=== PATIENT | male | born 2000 | race Caucasian/White ===

== ENCOUNTER 2020-09-12 07:06 | Day surgery (SDC) | payer BC ==
[2020-09-12] MEDS ORDERED: Sodium Chloride 0.9% 10 ML Syringe FLUSH PRN (07:46)
[2020-09-12] MEDS ORDERED: Lactated Ringers 1,000 ML IV SCH (08:00)
[2020-09-12] MEDS ORDERED: Propofol 200 MG/20 ML SDV ONE (08:45)
[2020-09-12] MEDS ORDERED: Midazolam 1 MG/ML 2 ML SDV ONE (08:45)
[2020-09-12] MEDS ORDERED: Glycopyrrolate 0.2 MG/ML SDV ONE (08:45)
[2020-09-12] MEDS ORDERED: Lidocaine 2% 5 ML SDV ONE (08:45)
[2020-09-12] MEDS ORDERED: Ketamine 200 MG/20 ML MDV ONE (08:45)
--- NOTE | 2020-09-12 09:36 | PCM.OPNOTE ---
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 All aspects of this procedure have been discussed with the patient. All possible complications also, including possibility of perforation, infection, pain, bleeding, numbness of the throat, swallowing difficulty and unknown com plications. In the event of perforation the patient may need surgical exploration to repair the defect. The patient understands fully well. Patient did not have any further questions for me at the end of my interview. The patient wishes for me to proceed. INSTRUMENT USED: Video gastroscope ANESTHESIA: [MAC] ASA CLASSIFICATION: [1] PROCEDURE PERFORMED: [Upper GI endoscopy] PHARYNX: Normal. ESOPHAGUS: Abnormal. Proximal: Mild stricture was observed at the upper end of the esophagus. Initially could not pass the scope but after 2 attempts I was easily able to pass the scope and many times after that. Did not have to dilate any further as a scope went in very easily. Middle: Normal. Lower: Normal. GE Junction: Normal. STOMACH: Normal. Cardia: Normal. Fundus: Normal. Lesser Curvature: Normal. Greater Curvature: Normal. Antrum: Normal. Pylorus: Normal. DUODENUM: Normal. First Part: Normal. Second Part: Normal. Third Part: Normal. RETROFLEXION: Normal. BIOPSY: None. TOLERANCE: Excellent. COMPLICATIONS: None. Slight stricture at the upper esophagus not requiring dilatation.
--- NOTE | 2020-09-14 16:13 | HP ---
PATIENT PROFILE: The patient is a 20-year-old male patient from [facility]. HISTORY OF PRESENT ILLNESS: This 20-year-old male patient is here today for evaluation of upper dysphagia. The patient has had, over the last six months, increasing symptoms of dysphagia, especially involving meat. He states that the food seems to get stuck at the back of the throat. A couple days ago, this was a distressing episode for him. He was finally able to get the food down by drinking bottled water. It appears to be mainly from meat and solids. No hematemesis. No vomiting. No blood in the stools. No weight loss. PAST HISTORY: Negative for any serious illnesses. He is one of eight children. ALLERGIES: None known. FAMILY HISTORY: None significant. His father of pulmonary disease, COPD. He was accompanied by his mother. Family relationships appear to be stable. REVIEW OF SYSTEMS: HEAD: No complaints. NECK: See present history. CHEST: No complaints. RESPIRATORY SYSTEM: No complaints. ABDOMEN: See present history. MUSCULOSKELETAL SYSTEM: No complaints. NEUROLOGICAL: No complaints. PSYCHIATRIC: No complaints. GI SYSTEM: See present history. UROLOGICAL SYSTEM: No complaints. NEUROLOGICAL SYSTEM: No complaints. PHYSICAL EXAMINATION: GENERAL: Reveals a very pleasant young gentleman in no immediate distress. VITAL SIGNS: He is 6 feet 1 inch. Temperature 97.9, pulse 72, blood pressure 149/97, and respiratory rate is 18. HEAD: Negative. EYES: Normal. ENT: Negative. NECK: Supple. Full range of motion. No midline swelling. HEART: Stable. LUNGS: Stable. ABDOMEN: Soft. NEUROLOGIC: Intact. IMPRESSION: Dysphagia at the upper end of the esophagus, question, etiology unknown. PLAN: Elective upper GI endoscopy to be performed today under MAC anesthesia. The patient agreed to going ahead with the procedure. His mother also gave consent. /[id number]/MODL
== END 2020-09-12 11:56 | disposition home or self-care (01) ==
LOC: KA.SDS 07:06
PROVIDERS: ATTEND Family Medicine
DX: K22.2 Esophageal obstruction (principal); Z01.812 Encounter for preprocedural laboratory examination; Z20.822 Contact with and (suspected) exposure to COVID-19
CPT/HCPCS: 00731; J2250; J2704; J3490; J7120; U0002